=== PATIENT | male | born 1950 | race Hispanic/Latino ===

== ENCOUNTER → 2024-06-15 | Outpatient (CLI) | payer OTHER ==
--- NOTE | 2024-06-15 10:44 | HMCIMG ---
SNIFF TEST, CHEST FLUOROSCOPY REASON: DISORDERS OF DIAPHRAGM. COMPARISON: None TECHNIQUE: Fluoroscopic Sniff test was performed. FINDINGS: There is normal movement of the diaphragms noted in both inspiration and expiration. IMPRESSION: Normal movement of diaphragms are demonstrated bilaterally.
== END | disposition home or self-care (01) ==
LOC: RAH 10:00
PROVIDERS: ATTEND Internal Medicine Pulmonary Disease
DX: J98.6 Disorders of diaphragm (principal); J98.11 Atelectasis
CPT/HCPCS: 76000